=== PATIENT | female | born 1935 | race Caucasian/White ===

== ENCOUNTER 2016-10-16 00:34 | Emergency (ER) | payer MEDICARE, MEDICAID ==
[2016-10-16] MEDS ORDERED: FENTANYL 25 MCG/HR PATCH.TD72 TD ONE (02:05)
[2016-10-16] MEDS ORDERED: MORPHINE SULFATE 10 MG/ML INJ IV ONE (02:06)
[2016-10-16] MEDS ORDERED: LIDOCAINE 5% (700 MG) TRANSDERMAL ADH..PATCH TP ONE (02:06)
[2016-10-16] MEDS ORDERED: MORPHINE SULFATE 10 MG/ML INJ IM ONE (02:11)
--- NOTE | 2016-10-16 02:46 | ER Document Report ---
ED General - General Chief Complaint: Shoulder Injury Stated Complaint: POSSIBLE RIGHT SHOULDER INJURY TRAVEL OUTSIDE OF THE [place] IN LAST 30 DAYS: No - HPI Patient complains to provider of: right shoulder fracture Notes: Patient from local [facility] coming into the ER today after she was found to have a right shoulder fracture on the . Patient was sent to the ER today for pain control. Otherwise discussing with the patient's daughter states that there is currently investigation ongoing in the fdc. States the patient seems to be in severe pain patient does have all timers is nonverbal and his non-mobile states chronically bedbound. Past Medical History - General Information source: Emergency Med Personnel - Social History Smoking Status: Unknown if Ever Smoked Family History: None - Immunizations Hx Diphtheria, Pertussis, Tetanus Vaccination: Yes Review of Systems - Review of Systems -: Yes ROS unobtainable due to patient's medical condition - Dementia Alzheimer' s Physical Exam - Vital signs Vitals: Temp Pulse Resp BP Pulse Ox 97.4 F 118 H 18 130/60 H 96 10/16/16 01:16 10/16/16 01:16 10/16/16 01:16 10/16/16 01:16 10/16/16 01:16 Interpretation: Tachycardic - General General appearance: Other - Patient was to be in pain - HEENT Head: Normocephalic, Atraumatic Pupils: PERRL Neck: Normal - Respiratory Respiratory status: No respiratory distress Chest status: Nontender Breath sounds: Normal Chest palpation: Normal - Cardiovascular Rhythm: Regular Heart sounds: Normal auscultation Murmur: No - Abdominal Inspection: Normal Distension: No distension Bowel sounds: Normal Tenderness: Nontender Organomegaly: No organomegaly - Back Back: Normal, Nontender - Extremities General upper extremity: Other - Patient has diffuse bruising to the right shoulder midhumerus. Pulses are intact distally. Left arm affected. General lower extremity: Other - Patient with chronic contracture of the lower extremities pulses are intact. - Neurological Neuro grossly intact: Yes - baseline per family - Skin Skin Temperature: Warm Skin Moisture: Dry Skin Color: Normal Course - Re-evaluation Re-evalutation: 10/16/16 04:11 Patient's x-ray again demonstrates a displaced proximal humeral fracture which is consistent with x-rays performed at the facility or fdc. Patient will be given a dose of morphine will start patient on a fentanyl patch that the patient cannot swallow pills acetate liquids. Advise family member to continue with investigation at the fdc. However at this time is no reason to admit the patient. Patient can be transported back to the fdc encouraged family members to have the patient follow-up with orthopedics and fdc supervising physician for further evaluation of the fracture shoulder and titration of pain medications. - Vital Signs Vital signs: Temp Pulse Resp BP Pulse Ox 97.4 F 118 H 18 130/60 H 96 10/16/16 01:16 10/16/16 01:16 10/16/16 01:16 10/16/16 01:16 10/16/16 01:16 Discharge - Discharge Clinical Impression: Displaced fracture of surgical neck of humerus Qualifiers: Encounter type: initial encounter Fracture type: closed Laterality: right Condition: Good Disposition: HOME, SELF-CARE Instructions: Sling as Treatment ([facility]), Fracture Proximal Humerus Additional Instructions: X-ray today again confirms a displaced fracture of the humeral neck. We will place the patient in a sling. Patient received morphine and will be given fentanyl patches for pain control. I'll prescribe signal patches for the patient this can be titrated by the overseeing physician at your facility. Patient will need to see orthopedics for further evaluation Prescriptions: Fentanyl [Duragesic 25 mcg/hr Transdermal Patch] 1 each TD Q3D #7 patch.[id number] Referrals: JEFERSON BARBOSA MD [Primary Care Provider] - Follow up tomorrow LINDA MICHELLE MD [ACTIVE STAFF] - Follow up as needed
[2016-10-16 04:25] VITALS: BP 131/75
== END 2016-10-16 04:24 | disposition home or self-care (01) ==
LOC: ER 00:34
DX: S42.211A Unspecified displaced fracture of surgical neck of right humerus, initial encounter for closed fracture (principal); R00.0 Tachycardia, unspecified; X58.XXXA Exposure to other specified factors, initial encounter; Y92.129 Unspecified place in nursing home as the place of occurrence of the external cause; G30.9 Alzheimer's disease, unspecified; F02.80 Dementia in other diseases classified elsewhere, unspecified severity, without behavioral disturbance, psychotic disturbance, mood disturbance, and anxiety; Z74.01 Bed confinement status
CPT/HCPCS: 99283; 96372; 73060; L3650; J2270

== ENCOUNTER 2016-11-01 17:50 | Inpatient (IN) | payer MEDICARE, MEDICAID ==
--- NOTE | 2016-11-01 19:15 | ER Document Report ---
ED General - General Chief Complaint: Other Stated Complaint: ABNORMAL VITALS Time seen by provider: 19:10 Mode of Arrival: Medic Information source: Relative, Transfer Record Notes: This is an 81-year-old female with a history of chronic kidney disease, atherosclerotic heart disease, hypothyroidism, Alzheimer's dementia, hypertension, rheumatoid arthritis, diabetes. The patient is a resident at [facility] 2[place] and she is brought in by ambulance because of decreased by mouth intake, decreased responsiveness. The patient is accompanied by her daughter at the bedside. Patient is DO NOT RESUSCITATE and the daughter states she wants comfort measures only. TRAVEL OUTSIDE OF THE [place] IN LAST 30 DAYS: No - HPI Onset: Last week Onset/Duration: Gradual Quality of pain: No pain Severity: None Associated symptoms: Weakness. denies: Nonproductive cough, Productive cough, Fever, Shortness of breath Exacerbated by: Denies Relieved by: Denies Similar symptoms previously: Yes Recently seen / treated by doctor: Yes - Related Data Allergies/Adverse Reactions: loratadine Allergy (Verified 11/01/16 18:59) Past Medical History - General Information source: Relative - Social History Smoking Status: Never Smoker Cigarette use (# per day): No Chew tobacco use (# tins/day): No Frequency of alcohol use: None Drug Abuse: None Lives with: Family Family History: None Patient has suicidal ideation: No - Past Medical History Cardiac Medical History: Reports: Hx Hypertension Pulmonary Medical History: Reports: None Endocrine Medical History: Reports: None GI Medical History: Reports: None Musculoskeltal Medical History: Reports Hx Arthritis Skin Medical History: Reports None Psychiatric Medical History: Reports: None Traumatic Medical History: Reports: Other - Recent arm fracture Infectious Medical History: Reports: None Surgical Hx: Other - Noncontributory - Immunizations Hx Diphtheria, Pertussis, Tetanus Vaccination: Yes Review of Systems - Review of Systems Constitutional: denies: Chills, Fever EENT: No symptoms reported Cardiovascular: No symptoms reported Respiratory: No symptoms reported Gastrointestinal: No symptoms reported Genitourinary: No symptoms reported Female Genitourinary: No symptoms reported Musculoskeletal: See HPI Skin: No symptoms reported Hematologic/Lymphatic: No symptoms reported Neurological/Psychological: See HPI Physical Exam - Vital signs Vitals: Temp Pulse Resp BP Pulse Ox 99.8 F 102 H 20 116/74 95 11/01/16 18:40 11/01/16 18:40 11/01/16 18:40 11/01/16 18:40 11/01/16 18:40 Notes: Physical exam: GENERAL: 81-year-old female, appears very dehydrated, minimally responsive. HEAD: Atraumatic, normocephalic. EYES: sclera anicteric, conjunctiva are normal. ENT: oropharynx dry without exudates. Drymucous membranes. NECK: supple without lymphadenopathy or JVD. LUNGS: Breath sounds clear to auscultation bilaterally and equal. No wheezes rales or rhonchi. HEART: Regular rate and rhythm without murmurs, rubs or gallops. ABDOMEN: Soft, nontender, normoactive bowel sounds. No guarding, no rebound. No masses appreciated. Rectal: Brown stool, sent for study Sacrum: No breakdown, skin dry and intact and looks good. EXTREMITIES: Ecchymoses to the right upper extremity from a recent fracture NEUROLOGICAL: Lethargic, appears dehydrated, minimally responsive PSYCH: As mentioned above SKIN: Patient has ecchymoses to the right upper extremity from a recent fracture Course - Vital Signs Vital signs: Temp Pulse Resp BP Pulse Ox 97.3 F 87 15 117/55 L 100 11/02/16 01:54 11/02/16 01:54 11/02/16 01:54 11/02/16 01:54 11/02/16 01:54 - Laboratory Result Diagrams: 11/01/16 20:20 11/01/16 20:20 Laboratory results interpreted by me: 11/01/16 11/01/16 20:20 20:20 WBC 25.3 H MCHC 30.5 L RDW 15.7 H Seg Neuts % (Manual) 79 H Band Neutrophils % 1 L Abs Neuts (Manual) 20.2 H Sodium 171.5 H* Potassium 5.2 H Chloride 134 H Carbon Dioxide 16 L Anion Gap 22 H BUN 136 H Creatinine 3.46 H Est GFR ( Amer) 15 L Est GFR (Non-Af Amer) 13 L Glucose 217 H Discharge - Discharge Clinical Impression: acute renal failure, dehydration, severe hypernatremia Condition: Stable Disposition: ADMITTED INPATIENT Admitting Provider: Hospitalist - Unit Admitted: Medical Floor
[2016-11-01] MEDS: NORMAL SALINE 1000 ML 1,000 ML IV PRN ×2 (20:00→20:25)
[2016-11-01 20:45] LABS: HEMATOCRIT 44.8 % (36.0-47.0); HEMOGLOBIN 13.7 g/dL (12.0-15.5); HGB HCT DIFFERENCE -3.7; MEAN CORPUSCULAR HEMOGLOBIN 29.1 pg (27.0-33.4); MEAN CORPUSCULAR HGB CONC 30.5 g/dL (32.0-36.0); MEAN CORPUSCULAR VOLUME 96 fl (80-97); RED BLOOD COUNT 4.69 10^6/uL (3.72-5.28); RED CELL DISTRIBUTION WIDTH 15.7 % (11.5-14.0); WHITE BLOOD COUNT 25.3 10^3/uL (4.0-10.5)
[2016-11-01 20:52] LABS: CALCIUM 9.1 mg/dL (8.4-10.2); CREATININE RESULT 3.46 mg/dL (0.52-1.25); GLUCOSE 217 mg/dL (75-110)
[2016-11-01 21:00] LABS: BLOOD UREA NITROGEN 136 mg/dL (7-20); CARBON DIOXIDE 16 mmol/L (22-30); CHLORIDE 134 mmol/L (98-107); POTASSIUM 5.2 mmol/L (3.6-5.0)
[2016-11-01 21:01] LABS: BAND NEUTROPHILS % (MANUAL) 1 % (3-5); BASOPHILS % (MANUAL) 0 % (0-2); EOSINOPHILS % (MANUAL) 1 % (0-6); LYMPHOCYTES % (MANUAL) 16 % (13-45); TOTAL CELLS COUNTED 100
[2016-11-01 21:03] LABS: ANION GAP 22 (5-19); ANISOCYTOSIS SLIGHT; OVALOCYTES SLIGHT; POIKILOCYTOSIS SLIGHT; SODIUM 171.5 mmol/L (137-145)
[2016-11-01] MEDS ORDERED: DEXTROSE 5%-WATER 1000 ML 1,000 ML IV PRN (21:53)
[2016-11-01] MEDS ORDERED: FENTANYL 12 MCG/HR PATCH.TD72 TD ONE (23:45)
[2016-11-01] MEDS ORDERED: ONDANSETRON HCL INJ/PF 4 MG/2 ML SDV IV PRN (23:45)
[2016-11-02] MEDS ORDERED: CEFTRIAXONE 1 GM/D5W RTU 1 GM/50 ML RTUPB IV ONE ×2 (00:30→01:00)
[2016-11-02 02:47] LABS: ANION GAP 19 (5-19); CALCIUM 7.9 mg/dL (8.4-10.2); CARBON DIOXIDE 15 mmol/L (22-30); CHLORIDE 134 mmol/L (98-107); GLUCOSE 275 mg/dL (75-110); POTASSIUM 4.3 mmol/L (3.6-5.0); SODIUM 168.3 mmol/L (137-145)
[2016-11-02 02:58] LABS: BLOOD UREA NITROGEN 131 mg/dL (7-20)
--- NOTE | 2016-11-02 05:41 | PDOC H&P ---
History of Present Illness Admission Date/PCP: 11/01/16 23:45 JEFERSON BARBOSA Patient complains of: Altered mental status History of Present Illness: ZHANNA MOSELEY is a 81 year old female long-term residential resident with a past medical history of end-stage dementia bedbound and nonverbal for approximately 4 years, who had been her stable state excepting by mouth diet with assistance. Until approximately 2 weeks ago when she sustained fracture to the right humerus. She was placed on transdermal fentanyl, resulting in comfort however a greatly reduced by mouth intake. Over the last few days she is been less responsive to feeding and brought to the emergency room for evaluation where she's found to have a sodium of 170 and acute renal failure with sodium of 171 and a creatinine of 3.4 and leukocytosis. She's referred to the hospitalist for admission. Daughter requesting optimization of comfort measures, requesting blood draws from IV only refusing imaging or NG tube. Past Medical History Cardiac Medical History: Reports: Hypertension Pulmonary Medical History: Reports: None Neurological Medical History: Reports: Other - End-stage dementia Endocrine Medical History: Reports: None GI Medical History: Reports: None Musculoskeltal Medical History: Reports: Arthritis Skin Medical History: Reports: None Psychiatric Medical History: Reports: Dementia Traumatic Medical History: Reports: Other - Recent arm fracture Infectious Medical History: Reports: None Social History Information Source: Relative, [facility], [facility] Records Lives with: Family, [facility] Smoking Status: Never Smoker Hx Recreational Drug Use: No Drugs: None Hx Prescription Drug Abuse: No - Advance Directive Resuscitation Status: Do Not Resuscitate Family History Family History: Reviewed & Not Pertinent Parental Family History Reviewed: Yes Children Family History Reviewed: Yes Sibling(s) Family History Reviewed.: Yes Medication/Allergy Home Medications: Fentanyl [Duragesic 25 mcg/hr Transdermal Patch] 1 each TD Q3D #7 patch.td72 12/01 Allergies/Adverse Reactions: loratadine Allergy (Verified 11/01/16 18:59) Review of Systems ROS unobtainable: Due to mental status Physical Exam Vital Signs: Temp Pulse Resp BP Pulse Ox 97.3 F 87 15 117/55 L 100 11/02/16 01:54 11/02/16 01:54 11/02/16 01:54 11/02/16 01:54 11/02/16 01:54 Intake & Output 10/31/16 11/01/1611/02/17 11:59 11:59 11:59 Weight 65.9 kg General appearance: PRESENT: no acute distress, other - Responsive to noxious stimuli with eye opening without tracking Head exam: PRESENT: atraumatic, normocephalic Eye exam: PRESENT: conjunctiva pink, conjunctiva pale, EOMI. ABSENT: nystagmus , periorbital swelling, scleral icterus Ear exam: PRESENT: normal external ear exam Mouth exam: PRESENT: dry mucosa Neck exam: ABSENT: carotid bruit, JVD, lymphadenopathy, thyromegaly Respiratory exam: PRESENT: clear to auscultation marylou. ABSENT: rales, rhonchi, wheezes Cardiovascular exam: PRESENT: RRR. ABSENT: diastolic murmur, rubs, systolic murmur Pulses: PRESENT: normal dorsalis pedis pul GI/Abdominal exam: PRESENT: hypoactive bowel sounds, normal bowel sounds, soft. ABSENT: distended, guarding, mass, organolmegaly, rebound, tenderness Rectal exam: PRESENT: deferred Extremities exam: PRESENT: full ROM. ABSENT: calf tenderness, clubbing, pedal edema Musculoskeletal exam: PRESENT: other - Right upper arm ecchymosis and swelling Neurological exam: PRESENT: altered Skin exam: PRESENT: dry, intact, warm. ABSENT: cyanosis, rash Results Laboratory Results: 11/02/16 02:12 11/02/16 02:12 Sodium 168.3 H Potassium 4.3 Chloride 134 H Carbon Dioxide 15 L Anion Gap 19 BUN 131 H Creatinine 3.20 H Est GFR ( Amer) 17 L Est GFR (Non-Af Amer) 14 L Glucose 275 H Calcium 7.9 L Assessment & Plan - Diagnosis (1) Hypernatremia Is this a current diagnosis for this admission?: YesPlan: Patient is had inadequate by mouth intake after fentanyl was initiated, patient' s daughter refuses hospice and requests optimization of comfort measures refusing discontinuation of fentanyl or NG feeding. That said the patient is placed on hypertonic saline with repeat labs every 6 hours in an effort to avoid overcorrection. (2) Acute renal failure Is this a current diagnosis for this admission?: YesPlan: Secondary to poor by mouth intake labs obtained in July 2016 reveal normal renal function. Continue gentle hydration and reevaluation. (3) Dehydration Is this a current diagnosis for this admission?: YesPlan: Please see #2 (4) Leukocytosis Is this a current diagnosis for this admission?: YesPlan: Unclear source patient's daughter refusing workup requesting empiric antibiotic trial and subsequently Rocephin has been initiated. Follow-up CBC (5) Advanced dementia Is this a current diagnosis for this admission?: YesPlan: Given the patient's inability to meet comfort measures without fentanyl and nutritional needs resulting in multiorgan failure I do not believe she will have long-term benefit from short-term IV resuscitation as I am unable to correct the underlying cause. That said the trial of the above is initiated strongly suggest reevaluation for hospice with patient's daughter at bedside - Time Time Spent: 50 to 70 Minutes
[2016-11-02] MEDS: CEFTRIAXONE 1 GM/D5W RTU 1 GM/50 ML RTUPB IV SCH (10:21)
[2016-11-02] MEDS ORDERED: FENTANYL 12 MCG/HR PATCH.TD72 TD ONE (11:00)
--- NOTE | 2016-11-02 16:45 | PDOC PROGRESS REPORT ---
Subjective Progress Note for:: 11/02/16 Subjective:: Patient seen on morning rounds. Daughter is at bedside. Patient with advanced dementia and is nonverbal. She is eating and drinking now with daughter's assistance. Had long discussion with his daughter regarding her goals of care for her mother. She wishes to proceed with Palliative care and comfort measures only Physical Exam Vital Signs: Temp Pulse Resp BP Pulse Ox 97.1 F 88 14 143/77 H 97 11/02/16 14:53 11/02/16 14:53 11/02/16 14:53 11/02/16 14:53 11/02/16 14:53 Intake & Output 11/01/16 11/02/16 11/03/16 06:59 06:59 06:59 Intake Total 0 Balance 0 Weight 66.8 kg General appearance: PRESENT: no acute distress, well-developed, well-nourished Head exam: PRESENT: atraumatic, normocephalic Eye exam: PRESENT: conjunctiva pale Ear exam: PRESENT: normal external ear exam Mouth exam: PRESENT: dry mucosa, tongue midline Neck exam: ABSENT: carotid bruit, JVD, lymphadenopathy, thyromegaly Respiratory exam: PRESENT: clear to auscultation marylou. ABSENT: rales, rhonchi, wheezes Cardiovascular exam: PRESENT: RRR. ABSENT: diastolic murmur, rubs, systolic murmur Pulses: PRESENT: normal dorsalis pedis pul Vascular exam: PRESENT: normal capillary refill GI/Abdominal exam: PRESENT: diminished bowel sounds, soft. ABSENT: distended, guarding, mass, organolmegaly, rebound, tenderness Rectal exam: PRESENT: deferred Extremities exam: PRESENT: full ROM. ABSENT: calf tenderness, clubbing, pedal edema Musculoskeletal exam: PRESENT: normal inspection Neurological exam: PRESENT: altered, awake, CN II-XII grossly intact Psychiatric exam: PRESENT: appropriate affect, normal mood. ABSENT: homicidal ideation, suicidal ideation Skin exam: PRESENT: dry, normal color, warm Results Laboratory Results: 11/02/16 02:12 11/02/16 02:12 Sodium 168.3 H Potassium 4.3 Chloride 134 H Carbon Dioxide 15 L Anion Gap 19 BUN 131 H Creatinine 3.20 H Est GFR ( Amer) 17 L Est GFR (Non-Af Amer) 14 L Glucose 275 H Calcium 7.9 L Assessment & Plan - Diagnosis (1) Hypernatremia Is this a current diagnosis for this admission?: YesPlan: Patient will receive IV fluid today per daughter and then will d/c (2) Acute renal failure Qualifiers: Acute renal failure type: unspecified Qualified Code(s): N17.9 - Acute kidney failure, unspecified Is this a current diagnosis for this admission?: YesPlan: Patient with JOSE RAFAEL on CKD4 secondary to dehydration. Will hydrate today with IV fluids and then stop per daughter (3) Advanced dementia Is this a current diagnosis for this admission?: YesPlan: Comfort measures only (4) Dehydration Is this a current diagnosis for this admission?: YesPlan: Patient will receive IV hydration today - Time Time Spent with patient: 25-34 minutes Critical Time spent with patient: 25-34 minutes Medications reviewed and adjusted accordingly: Yes Anticipated discharge: SNF
[2016-11-02] MEDS ORDERED: MORPHINE SULFATE 10 MG/ML INJ IV PRN (22:17)
[2016-11-03] MEDS: CEFTRIAXONE 1 GM/D5W RTU 1 GM/50 ML RTUPB IV SCH (10:18)
--- NOTE | 2016-11-03 11:24 | PDOC TRANSFER SUMMARY ---
General - Admit/Disc Date/PCP Admission Date/Primary Care Provider: 11/01/16 23:45 JEFERSON BARBOSA Discharge Date: 11/03/16 - Discharge Diagnosis (1) Hypernatremia Is this a current diagnosis for this admission?: YesSummary: Rehydrated with 24 hrs of IV fluid. Now comfort care (2) Acute renal failure Is this a current diagnosis for this admission?: YesSummary: No further labs with comfort care (3) Advanced dementia Is this a current diagnosis for this admission?: Yes (4) Dehydration Is this a current diagnosis for this admission?: Yes - Additional Information Resuscitation Status: Do Not Resuscitate Discharge Diet: Other (Comments) - Pureed thickened liquids Discharge Activity: Activity As Tolerated Home Medications: Fentanyl [Duragesic 25 mcg/hr Transdermal Patch] 1 each TD Q3D #7 patch.td72 12/01 Amlodipine Besylate [Norvasc 5 mg Tablet] 5 mg PO BID 11/02/16 Aspirin [Aspirin EC] 81 mg PO DAILY 11/02/16 Insulin Glargine,Hum.rec.anlog [Lantus] 20 units SQ QAM 11/02/16 Lactulose 15 ml PO DAILY 11/02/16 Levothyroxine Sodium 100 mcg PO DAILY 11/02/16 Multivitamin/Iron/Folic Acid [Centrum Complete Multivit Tab] 1 tab PO DAILY Fentanyl [Duragesic 12 Mcg/Hr Transdermal Patch] 1 each TD Q3DAYS #2 patch.td72 11/03/16 History of Present Illness Admission Date/PCP: 11/01/16 23:45 JEFERSON BARBOSA History of Present Illness: ZHANNA MOSELEY is a 81 year old female long-term shelter resident with a past medical history of end-stage dementia bedbound and nonverbal for approximately 4 years, who had been her stable state excepting by mouth diet with assistance. Until approximately 2 weeks ago when she sustained fracture to the right humerus. She was placed on transdermal fentanyl, resulting in comfort however a greatly reduced by mouth intake. Over the last few days she is been less responsive to feeding and brought to the emergency room for evaluation where she's found to have a sodium of 170 and acute renal failure with sodium of 171 and a creatinine of 3.4 and leukocytosis. She's referred to the hospitalist for admission. Daughter requesting optimization of comfort measures, requesting blood draws from IV only refusing imaging or NG tube. Hospital Course Hospital Course: Patient was admitted to the hospitalist service on telemetry. The patient's mentation returned to her baseline after IV fluids in the ED. IV maintenance fluids as well as empiric broad spectrum antibiotics were obtained. Met with patient's daughter, Laine who is her MPOA and advocate regarding goals for her mother's care. She voiced many frustations with her care at nursing facility and here. She stated she just wanted to keep her mother comfortable. She wanted no further intrusive testing or things that would cause her pain. We discussed option of hospice care and she was agreeable to meet with [facility]. Today she met with hospice nurse. She is agreeable for her mother to go back to [facility] on hospice care today. Physical Exam Vital Signs: Temp Pulse Resp BP Pulse Ox 97.3 F 68 12 135/74 H 99 11/03/16 08:31 11/03/16 08:31 11/03/16 08:31 11/03/16 08:31 11/03/16 08:31 Intake & Output 11/02/16 11/03/16 11/04/16 06:59 06:59 06:59 Intake Total 0 1920 Balance 0 1920 Weight 66.8 kg 66.8 kg General appearance: PRESENT: no acute distress, well-developed, well-nourished Head exam: PRESENT: atraumatic, normocephalic Eye exam: PRESENT: conjunctiva pale Ear exam: PRESENT: normal external ear exam Mouth exam: PRESENT: moist, tongue midline Neck exam: ABSENT: carotid bruit, JVD, lymphadenopathy, thyromegaly Respiratory exam: PRESENT: clear to auscultation marylou. ABSENT: rales, rhonchi, wheezes Cardiovascular exam: PRESENT: RRR. ABSENT: diastolic murmur, rubs, systolic murmur Pulses: PRESENT: normal dorsalis pedis pul Vascular exam: PRESENT: normal capillary refill Rectal exam: PRESENT: deferred Extremities exam: PRESENT: calf tenderness, other Musculoskeletal exam: PRESENT: tenderness - right arm in shoulder immobilizer Neurological exam: PRESENT: alert, altered, CN II-XII grossly intact, aphasic Psychiatric exam: PRESENT: appropriate affect Skin exam: PRESENT: dry, intact, warm. ABSENT: cyanosis, rash Results Laboratory Results: 11/02/16 02:12 Transfer Plan - Disposition Transfer Plan: Return to [facility] with [facility] following - Time Spent with Patient Time spent with patient: Less than 30 Minutes Qualifiers PATEINT BEING DISCHARGED WITH ANY OF THE FOLLOWING DIAGNOSIS?: No
[2016-11-03 12:56] VITALS: BP 133/71
[2016-11-05] MEDS ORDERED: FENTANYL 12 MCG/HR PATCH.TD72 TD SCH (10:00)
== END 2016-11-03 13:52 | DRG 683 ==
LOC: ER 17:50 → 5 23:45 → UNDOADMIN 11-02 00:28 → EH 11-02 00:28 → 5 11-02 01:52
PROVIDERS: ADMIT Internal Medicine; ATTEND Internal Medicine
DX: N17.9 Acute kidney failure, unspecified (principal); E87.0 Hyperosmolality and hypernatremia; E86.0 Dehydration; F03.90 Unspecified dementia, unspecified severity, without behavioral disturbance, psychotic disturbance, mood disturbance, and anxiety; I10 Essential (primary) hypertension; M19.90 Unspecified osteoarthritis, unspecified site; Z66 Do not resuscitate; Z88.8 Allergy status to other drugs, medicaments and biological substances
CPT/HCPCS: 36415; 80048; 82272; 85025; 87040; 96361; 96365; 99284; J0696; J2270; J3490; J7030; J7060